=== PATIENT | female | born 2000 | race Two or more races ===

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

== ENCOUNTER 2023-11-22 09:46 | Emergency (ER) | payer MEDICAID, OTHER ==
[~2023-11-22] VITALS: Ht 162.6 cm; Wt 109.1 kg
[2023-11-22 10:02] VITALS: BP 142/90; PULSE 82; RESP 18; TEMP 98; O2SAT 100
== END 2023-11-22 10:39 ==
LOC: EMS 09:46
DX: G40.909 Epilepsy, unspecified, not intractable, without status epilepticus (principal)
CPT/HCPCS: 99283; Z7502